=== PATIENT | female | born 1965 | race Caucasian/White ===

== ENCOUNTER 2016-10-23 08:48 | Emergency (ER) | payer MEDICAID, OTHER ==
[~2016-10-23] VITALS: Ht 157.5 cm; Wt 75.0 kg
[~2016-10-23 08:48] MED LIST: ALPR0.5T99; LEXA5TAB
[2016-10-23 09:32] VITALS: BP 176/94; PULSE 83; RESP 20; TEMP 98.6; O2SAT 99
[2016-10-23] MEDS ORDERED: LEXA20TA PO (09:38)
[2016-10-23] MEDS ORDERED: GABA300C5 PO (09:38)
[2016-10-23] MEDS ORDERED: ALPR.5 PO (09:38)
[2016-10-23] MEDS ORDERED: MOBI15TA PO (09:38)
[2016-10-23 10:05] LABS: AMPHETAMINE, URINE NEG (NEG); BARBITURATES, URINE NEG (NEG); COCAINE, URINE NEG (NEG)
[2016-10-23 10:06] LABS: AUTOMATED NEUTROPHIL # 5.5 TH/MM3 (1.8-7.7); BASOPHIL # 0.1 TH/MM3 (0-0.2); BASOPHIL % 0.8 % (0.0-2.0); EOSINOPHIL # 0.2 TH/MM3 (0-0.4); EOSINOPHIL % 2.7 % (0.0-4.0); HEMO FLAGS DIFF FINAL; LYMPH % 20.8 % (9.0-44.0); LYMPHOCYTE # 1.6 TH/MM3 (1.0-4.8); MEAN CELL VOLUME 88.7 FL (80.0-100.0); MEAN CORPUSCULAR HGB CONC 34.9 % (32.0-36.0); MONO % 4.9 % (0.0-8.0); NEUT % 70.8 % (16.0-70.0); PLATELET COUNT 308 TH/MM3 (150-450); RED BLOOD COUNT 4.51 MIL/MM3 (4.00-5.30); RED CELL DISTRIBUTION WIDTH 12.6 % (11.6-17.2); WHITE BLOOD COUNT 7.8 TH/MM3 (4.0-11.0)
[2016-10-23 10:17] LABS: BACTERIA, URINE RARE /hpf; BLOOD, URINE NEG (NEG); COMMENT (UR) CULT NOT INDICATED; CULTURE IF INDICATED CULT NOT INDICATED; GLUCOSE,URINE NEG (NEG); KETONE, URINE NEG (NEG); MUCUS URINE FEW /lpf (OCC); NITRITE,URINE NEG (NEG); SQUAMOUS EPITHELIAL CELL URINE <1 /hpf (0-5); URINE COLOR YELLOW (YELLW/STRAW)
[2016-10-23 10:27] LABS: ANION GAP 7 MEQ/L (5-15); AST (GOT) 17 U/L (15-37); BICARBONATE 29.1 MEQ/L (21.0-32.0); BLOOD UREA NITROGEN 10 MG/DL (7-18); CHLORIDE 103 MEQ/L (98-107); GLOMERULAR FILTRATION RATE 63 ML/MIN (>89); POTASSIUM 4.4 MEQ/L (3.5-5.1); SODIUM (NA) 139 MEQ/L (136-145)
[2016-10-23 10:30] LABS: ALKALINE PHOSPHATASE 119 U/L (45-117); ALT (GPT) 41 U/L (10-53); TOTAL BILIRUBIN ADULT 0.3 MG/DL (0.2-1.0)
--- NOTE | 2016-10-23 11:11 | PD ---
HPI Chief Complaint: Psychiatric Symptoms Time Seen by Provider: 11:11 Travel History International Travel<30 days: No Contact w/Intl Traveler<30days: No Traveled to known affect area: No History of Present Illness HPI 51-year-old female presents to the emergency department under Lares act by local police for suicidal ideation. According to the Lares act, the patient sent a text message to her has been stating she wanted to kill herself. The patient denies this stating that her was starting to turn off the electricity in their phones. She states that she does not message stating she wanted her ashes spread, but did not specifically say she would kill herself. She denies any suicidal or homicidal ideation at this time. She denies any medical complaints at this time. She states she was previously on Xanax for anxiety, but due to lack of insurance, but has been off of it. She denies ever being under a Lares act or ever attempting to hurt herself in the past. PFSH Past Medical History Anxiety: Yes Depression: Yes Hypertension: Yes (PT STATES ELEVATED B/P WHEN STRESSED.) Psychiatric: Yes (ptsd) Tetanus Vaccination: > 5 Years ?: Not Past Surgical History Cholecystectomy: Yes Social History Alcohol Use: No Tobacco Use: No Substance Use: No Allergies-Medications (Allergen,Severity, Reaction): Coded Allergies: Codeine (Verified Adverse Reaction, Mild, VOMITING, 10/23/16) Reported Meds & Prescriptions Reported Meds & Active Scripts Active Reported Mobic (Meloxicam) 15 Mg Tab 15 Mg PO BID Gabapentin 300 Mg Cap 300 Mg PO TID Xanax (Alprazolam) 0.5 Mg Tab 0.5 Mg PO TID PRN Lexapro (Escitalopram Oxalate) 20 Mg Tab 20 Mg PO DAILY Review of Systems Except as stated in HPI: all other systems reviewed are Neg Physical Exam Narrative GENERAL: Well-developed well-nourished female patient, ambulatory. Afebrile. SKIN: Warm and dry. HEAD: Normocephalic. Atraumatic. EYES: No scleral icterus. No injection or drainage. NECK: Supple, trachea midline. No JVD or lymphadenopathy. CARDIOVASCULAR: Regular rate and rhythm without murmurs, gallops, or rubs. RESPIRATORY: Breath sounds equal bilaterally. No accessory muscle use. Lungs sounds are clear to auscultation. GASTROINTESTINAL: Abdomen soft, non-tender, nondistended. MUSCULOSKELETAL: No cyanosis, or edema. PSYCHIATRIC: No delusional thought processes. No hallucinations. Data Data Last Documented VS Vital Signs Date Time Temp Pulse Resp B/P Pulse Ox O2 Delivery O2 Flow Rate FiO2 10/23/16 09:32 98.6 83 20 176/94 99 Orders Urinalysis - C+S If Indicated (10/23/16 09:25) Psych Screen (10/23/16 09:25) Drug Screen, Random Urine (10/23/16 09:25) Complete Blood Count With Diff (10/23/16 09:45) Comprehensive Metabolic Panel (10/23/16 09:45) Labs Laboratory Tests Test 10/23/16 10/23/16 09:23 09:45 Urine Color YELLOW Urine Turbidity CLEAR Urine pH 6.0 Urine Specific [place] 1.011 Urine Protein NEG mg/dL Urine Glucose (UA) NEG mg/dL Urine Ketones NEG mg/dL Urine Occult Blood NEG Urine Nitrite NEG Urine Bilirubin NEG Urine Urobilinogen LESS THAN 2.0 MG/DL Urine Leukocyte Esterase SMALL Urine RBC LESS THAN 1 /hpf Urine WBC 4 /hpf Urine Squamous Epithelial <1 /hpf Cells Urine Bacteria RARE /hpf Urine Mucus FEW /lpf Microscopic Urinalysis Comment CULT NOT INDICATED Urine Opiates Screen NEG Urine Barbiturates Screen NEG Urine Amphetamines Screen NEG Urine Benzodiazepines Screen POS Urine Cocaine Screen NEG Urine Cannabinoids Screen POS White Blood Count 7.8 TH/MM3 Red Blood Count 4.51 MIL/MM3 Hemoglobin 14.0 GM/DL Hematocrit 40.0 % Mean Corpuscular Volume 88.7 FL Mean Corpuscular Hemoglobin 31.0 PG Mean Corpuscular Hemoglobin 34.9 % Concent Red Cell Distribution Width 12.6 % Platelet Count 308 TH/MM3 Mean Platelet Volume 7.2 FL Neutrophils (%) (Auto) 70.8 % Lymphocytes (%) (Auto) 20.8 % Monocytes (%) (Auto) 4.9 % Eosinophils (%) (Auto) 2.7 % Basophils (%) (Auto) 0.8 % Neutrophils # (Auto) 5.5 TH/MM3 Lymphocytes # (Auto) 1.6 TH/MM3 Monocytes # (Auto) 0.4 TH/MM3 Eosinophils # (Auto) 0.2 TH/MM3 Basophils # (Auto) 0.1 TH/MM3 CBC Comment DIFF FINAL Differential Comment Sodium Level 139 MEQ/L Potassium Level 4.4 MEQ/L Chloride Level 103 MEQ/L Carbon Dioxide Level 29.1 MEQ/L Anion Gap 7 MEQ/L Blood Urea Nitrogen 10 MG/DL Creatinine 0.93 MG/DL Estimat Glomerular Filtration 63 ML/MIN Rate Random Glucose 113 MG/DL Calcium Level 9.4 MG/DL Total Bilirubin 0.3 MG/DL Aspartate Amino Transf 17 U/L (AST/SGOT) Alanine Aminotransferase 41 U/L (ALT/SGPT) Alkaline Phosphatase 119 U/L Total Protein 7.9 GM/DL Albumin 4.4 GM/DL MDM Medical Decision Making Medical Screen Exam Complete: Yes Emergency Medical Condition: Yes Medical Record Reviewed: Yes Differential Diagnosis Depression versus anxiety versus suicidal ideation versus medical clearance Narrative Course 51-year-old female presents to the emergency Department under Lares act by local police. Patient denies any current suicidal or homicidal ideation. She denies any medical complaints at this time. CBC shows no acute abnormalities. CMP shows no acute abnormalities. Urine drug screen is positive for benzodiazepines and cannabinoids. UA shows no evidence of acute infection. Patient is medically cleared for psychiatric screening and disposition. Mental health screening discussed with the patient. Psychiatric screen ordered. Diagnosis Primary Impression: Depression Qualified Code: F32.9 - Depression, unspecified depression type Additional Instructions: Patient is medically cleared for psychiatric screening and disposition. Condition: Stable Pam Banks Oct 23, 2016 11:11
[2016-10-23 11:45] VITALS: BP 152/70; PULSE 68; RESP 20; TEMP 97.4
--- NOTE | 2016-10-23 14:49 | PD ---
History of Present Illness Chief Complaint: Psychiatric Symptoms Travel History International Travel<30 Days: No Contact w/Intl Traveler<30days: No Known affected area: No Legal Status Legal Status: Lares Act Lares Act Signed By: Yoseph Johansen History of Present Illness: 51-year-old female who got into a telephone argument with her over the road [place] . Patient reportedly made suicidal threats but states she did not. She did admit to stating she wanted her ashes spread. However these are not words that she meant to indicate that she was suicidal. She currently denies suicidal or homicidal ideation, plan or intent. She denies any psychotic symptoms. She is calm and cooperative. She verbally contracts for safety. She states she simply got into an argument with her because he was given a turn off the electricity. PFSH Past Medical History Medical History: Denies Significant Hx Anxiety: Yes Depression: Yes Hypertension: Yes (PT STATES ELEVATED B/P WHEN STRESSED.) Psychiatric: Yes (ptsd) Tetanus Vaccination: > 5 Years ?: Not Past Surgical History Cholecystectomy: Yes Psychiatric History Psychiatric History Hx Psychiatric Treatment: PATIENT HAS HX OF DEPRESSION AND ANXIETY. WAS LAST SCRENED IN 2005 FOR DEPRESSION History of Inpatient Treatment: No Social History Hx Alcohol Use: No Hx Tobacco Use: No Hx Substance Use: Yes Substance Use Type: Marijuana Hx of Substance Use Treatment: No Allergies-Medications (Allergen,Severity, Reaction): Coded Allergies: Codeine (Verified Adverse Reaction, Mild, VOMITING, 10/23/16) Reported Meds & Prescriptions Reported Meds & Active Scripts Active Reported Mobic (Meloxicam) 15 Mg Tab 15 Mg PO BID Gabapentin 300 Mg Cap 300 Mg PO TID Xanax (Alprazolam) 0.5 Mg Tab 0.5 Mg PO TID PRN Lexapro (Escitalopram Oxalate) 20 Mg Tab 20 Mg PO DAILY Review of Systems ROS Limitations: Clinical Condition Except as stated in HPI: all other systems reviewed are Neg Exam Exam Limitations: Clinical Condition Alert: Yes [place]: Person, Place, Date, Situation Mood: Calm Affect: Euthymic Speech: Clear, Logical Eye Contact: Normal Memory Intact: Immediate, Recent, Remote Delusions: No Insight/Judgement Mildly impaired but adequate. MDM Medical Decision Making Medical Record Reviewed: Yes Assessment/Plan This physician feels the patient does not meet Lares act criteria and certainly does not meet inpatient psychiatric admission criteria. She is pleasant and calm and verbally contracts for safety. Her Lares act was lifted and she was discharged from the emergency department. Orders Urinalysis - C+S If Indicated (10/23/16 09:25) Psych Screen (10/23/16 09:25) Drug Screen, Random Urine (10/23/16 09:25) Complete Blood Count With Diff (10/23/16 09:45) Comprehensive Metabolic Panel (10/23/16 09:45) Diet Regular Basic (10/23/16 Lunch) Diet Regular Basic (10/23/16 Dinner) Results Vital Signs Date Time Temp Pulse Resp B/P Pulse Ox O2 Delivery O2 Flow Rate FiO2 10/23/16 11:45 97.4 68 20 152/70 10/23/16 09:32 98.6 83 20 176/94 99 Laboratory Tests Test 10/23/16 10/23/16 09:23 09:45 Urine Color YELLOW Urine Turbidity CLEAR Urine pH 6.0 Urine Specific [place] 1.011 Urine Protein NEG Urine Glucose (UA) NEG Urine Ketones NEG Urine Occult Blood NEG Urine Nitrite NEG Urine Bilirubin NEG Urine Urobilinogen LESS THAN 2.0 Urine Leukocyte Esterase SMALL Urine RBC LESS THAN 1 Urine WBC 4 Urine Squamous Epithelial <1 Cells Urine Bacteria RARE Urine Mucus FEW Microscopic Urinalysis Comment CULT NOT INDICATED Urine Opiates Screen NEG Urine Barbiturates Screen NEG Urine Amphetamines Screen NEG Urine Benzodiazepines Screen POS Urine Cocaine Screen NEG Urine Cannabinoids Screen POS White Blood Count 7.8 Red Blood Count 4.51 Hemoglobin 14.0 Hematocrit 40.0 Mean Corpuscular Volume 88.7 Mean Corpuscular Hemoglobin 31.0 Mean Corpuscular Hemoglobin 34.9 Concent Red Cell Distribution Width 12.6 Platelet Count 308 Mean Platelet Volume 7.2 Neutrophils (%) (Auto) 70.8 Lymphocytes (%) (Auto) 20.8 Monocytes (%) (Auto) 4.9 Eosinophils (%) (Auto) 2.7 Basophils (%) (Auto) 0.8 Neutrophils # (Auto) 5.5 Lymphocytes # (Auto) 1.6 Monocytes # (Auto) 0.4 Eosinophils # (Auto) 0.2 Basophils # (Auto) 0.1 CBC Comment DIFF FINAL Differential Comment Sodium Level 139 Potassium Level 4.4 Chloride Level 103 Carbon Dioxide Level 29.1 Anion Gap 7 Blood Urea Nitrogen 10 Creatinine 0.93 Estimat Glomerular Filtration 63 Rate Random Glucose 113 Calcium Level 9.4 Total Bilirubin 0.3 Aspartate Amino Transf 17 (AST/SGOT) Alanine Aminotransferase 41 (ALT/SGPT) Alkaline Phosphatase 119 Total Protein 7.9 Albumin 4.4 Diagnosis Primary Impression: Adjustment disorder with mixed disturbance of emotions and conduct Additional Instructions: Patient is medically cleared for psychiatric screening and disposition. Condition: Stable Evin Holcomb MD Oct 23, 2016 14:49
== END 2016-10-23 14:54 | disposition home or self-care (01) ==
LOC: NEDAMB 08:48 → NEPJ 14:54
DX: F43.25 Adjustment disorder with mixed disturbance of emotions and conduct (principal); F32.9 Major depressive disorder, single episode, unspecified; I10 Essential (primary) hypertension
CPT/HCPCS: 80053; 80307; 81001; 85025; 99283